=== PATIENT | male | born 1935 | race Caucasian/White ===

== ENCOUNTER 2018-08-18 10:01 | Day surgery (SDC) | payer MEDICARE, BC, OTHER, SELFPAY ==
[2018-08-16 12:19] VITALS: BMI 30.2
[2018-08-18] MEDS: LACTATED RINGERS 1,000 ML 42 ML IV (10:53)
[2018-08-18 11:00] VITALS: BP 181/89; PULSE 53; RESP 15; TEMP 36.6; O2SAT 98; BMI 30.2
[2018-08-18] MEDS: CEFAZOLIN 2 GM/100 ML FROZ.PIGGY IV (14:10)
--- NOTE | 2018-08-18 14:36 | SUR.PREOP ---
1130 RT hand IV saline pedro placed per Dr. Schwarz request. Pt tolerated procedure well.
[2018-08-18 14:55] VITALS: BP 150/79; PULSE 67; RESP 24; TEMP 37.2; O2SAT 99
[2018-08-18 15:22] VITALS: BP 136/71; PULSE 74; RESP 20; TEMP 37.2; O2SAT 96
--- NOTE | 2018-08-18 15:27 | PM.PREOP ---
Pre-operative Note Interval Note History & Physical reviewed/Exam performed by Physician: Yes Changes to H&P: No
--- NOTE | 2018-08-18 15:28 | PM.OP.1 ---
Operative Date/Time/Diagnoses Date of procedure: 08/18/18 Time of procedure: 14:28 Pre-op diagnosis: right carpal tunnel Post-op diagnosis: same Procedure & Clinicians Procedure: Right carpal tunnel release Same procedure as scheduled: Yes Indications: Cipriano has ongoing burning pain into his right hand and some numbness. Workup showed evidence of carpal tunnel syndrome on the right and he is brought to the operating room for carpal tunnel release. Surgeon: Arabella Schwarz Click Yes if Unassisted: Yes Anesthesia Type: Other (IV regional plus local) Operative Notes Findings: Moderate to severe compression of the median nerve Closure Type: primary Specimen(s): none sent Estimated Blood Loss (mL): 20 Blood products transfused: none Tourniquet time (min): 20 Procedure in detail: Patient was brought to the operating room. An IV regional was induced. Patient's right upper extremity prepped draped standard sterile fashion. Time-out was performed. An incision was made over the carpal canal. Dissection was carried out through skin and subcutaneous tissues. Palmar fascia was incised in line with the skin incision. Hemostasis was achieved with a bipolar cautery. Distal extent of the carpal canal was identified. An incision was made along the distal aspect of the transverse carpal ligament. Hemostat was then placed deep to the transverse carpal ligament after freeing the subcutaneous tissues and palmar fascia off of the more subcutaneous and superficial aspect of the transverse carpal ligament and distal antebrachial fascia. The transverse carpal ligament was released under direct visualization. The antebrachial fascia was released with a Pott's scissors. The wound was irrigated with normal saline. Marcaine was injected. The wound was closed with interupted nylon. The wound was dressed sterilely and he was placed in a cock up brace. Complications: none Condition: stable Disposition: same day surgery Plan for aftercare: Work on range of motion for the fingers, use her wrist brace for 10 days postoperatively.
== END 2018-08-18 15:23 | disposition home or self-care (01) ==
PROVIDERS: PCP Family Medicine; Visit Provider Orthopaedic Surgery
PROC: (CPT 64721; principal; 2018-08-18 12:15)
DX: G56.01 Carpal tunnel syndrome, right upper limb (principal); I10 Essential (primary) hypertension; Z87.891 Personal history of nicotine dependence
CPT/HCPCS: 64721; J0360; J0690